=== PATIENT | male | born 1960 | race Caucasian/White ===

== ENCOUNTER 2018-03-13 21:54 | Inpatient (IN) | payer OTHER ==
--- NOTE | 2018-03-13 22:11 | PDOC ---
ED Treatment Course - LABORATORY CBC & Chemistry Diagram: 03/15/18 19:00 03/15/18 09:51 Medical Decision Making - Medical Decision Making 03/13/18 22:47 57 yo M presenting for evaluation of rectal bleeding Pt did well s/p procedure Has large Bowel Movement today and since then, has had rectal bleeding Daughter estimates 6 times Pt has no abdominal pain Went to the bathroom accompanied by Pt had a large bloody bowel movement and had a vasovagal episode Assisted to bed Labs pending Call to Dr Reji Jean-Baptiste pending 03/13/18 22:48 Laboratory Tests 03/13/18 03/13/18 22:00 22:00 WBC 5.5 Hgb 10.8 L Hct 31.2 L Plt Count 120 L BUN 19 H Creatinine 0.9 No baseline Hgb available for comparison Pt BUN elevated 03/13/18 23:11 Laboratory Tests 03/13/18 22:00 Urine Blood 3+ H Urine Nitrite Negative Ur Leukocyte Esterase Negative Urine WBC (Auto) 4 Urine RBC (Auto) 7592 Admitted to hospitalist service *DC/Admit/Observation/Transfer Diagnosis at time of Disposition: Vasovagal episode, Hematuria Post-operative hemorrhage Qualifiers: Surgical complication system/body Area: genitourinary Procedure type: genitourinary Qualified Code(s): N99.820 - Postprocedural hemorrhage of a genitourinary system organ or structure following a genitourinary system procedure - Discharge Dispostion Condition at time of disposition: Guarded - Referrals - Patient Instructions - Post Discharge Activity
[2018-03-13 22:23] LABS: BASO % 0.5 % (0-2.0); HEMATOCRIT 31.2 % (35.4-49); HEMOGLOBIN 10.8 GM/dL (11.7-16.9); LYMPH % 32.1 % (8-40); MCH 31.7 pg (25.7-33.7); MCHC 34.6 g/dl (32.0-35.9); MEAN CELL VOLUME 91.6 fl (80-96); MEAN PLT VOLUME 10.5 fl (7.5-11.1); MONO % 8.1 % (3.8-10.2); NEUT % 57.3 % (42.8-82.8); PLATELET COUNT 120 K/MM3 (134-434); RBC 3.41 M/mm3 (4.00-5.60); RDW 14.4 % (11.9-15.9); WHITE BLOOD COUNT 5.5 K/mm3 (4.0-10.0)
[2018-03-13] MEDS ORDERED: SODIUM CHLORIDE 1,000 ML IV STA (22:35)
--- NOTE | 2018-03-13 22:42 | PDOC ---
History of Present Illness - General Chief Complaint: Rectal Bleed Stated Complaint: BLEEDING POST PROCEDURE Time Seen by Provider: 03/13/18 22:11 History Source: Patient Exam Limitations: No Limitations - History of Present Illness Initial Comments: 03/13/18 22:54 Best Contact: PCP:Dr. Urbina/urologist, PMD: Dr. Isabella Mendez/admits to hospitalist Pmhx:HTN Pshx: 0 Allergies: NKDA FH:0 Social Hx: Cigarettes/ 0 Alcohol/ social Drugs/0 57-year-old male presents to the emergency department complaining of bright red blood per rectum and hematuria since approximately 0900 hrs. this morning. Patient states he had a prostate biopsy by Dr. Urbina 3 days ago. Patient states on the same day of his biopsy, he had a tinge bright red blood per rectum when wiping after a bowel movement which subsided after one episode. Patient states he was fine 2 days ago and yesterday until this morning. Patient endorses having the urge to have a bowel movement but instead noticed a copious amount of bright red blood. Patient denies any nausea/vomiting, fever/chills, headache, cp, sob, abd pain, flank pain, urinary symptoms/urgency/frequency, extremity numbness or tingling sensation. Had a good BM today with the BRBPR. Pt took naprosyn 500mg tid today. Upon arrival to the actual emergency department exam room, patient insists on going to the bathroom as opposed to using a bedpan. Patient vasovagal in the bathroom but was caught by his and did not fall and make contact with the floor. Past History - Past Medical History Allergies/Adverse Reactions: Allergies Allergy/AdvReac Type Severity Reaction Status Date / Time No Known Allergies Allergy Verified 03/13/18 22:19 Home Medications: Ambulatory Orders Lisinopril [Prinivil] 10 mg PO DAILY 09/20/14 Levofloxacin [Levaquin] 500 mg PO DAILY 03/13/18 Naproxen 500 mg PO DAILY 03/13/18 COPD: No HTN: Yes - Suicide/Smoking/Psychosocial Hx Smoking History: Never smoked Have you smoked in the past 12 months: No Information on smoking cessation initiated: No Hx Alcohol Use: No Drug/Substance Use Hx: No Substance Use Type: Alcohol Review of Systems - Review of Systems Able to Perform ROS?: Yes Comments:: 03/13/18 22:52 CONSTITUTIONAL: Absent: fever, chills, diaphoresis, generalized weakness, malaise, loss of appetite HEENT: Absent: rhinorrhea, nasal congestion, throat pain, throat swelling, difficulty swallowing, mouth swelling, ear pain, eye pain, visual Changes CARDIOVASCULAR: Absent: chest pain, loss of consciousness, palpitations, irregular heart rate, peripheral edema RESPIRATORY: Absent: cough, shortness of breath, dyspnea with exertion, orthopnea, wheezing, stridor, hemoptysis GASTROINTESTINAL: +BRBPR Absent: abdominal pain, abdominal distension, nausea, vomiting, diarrhea, constipation, melena, hematochezia GENITOURINARY: Absent: dysuria, frequency, urgency, hesitancy, hematuria, flank pain, genital pain MUSCULOSKELETAL: Absent: myalgia, arthralgia, joint swelling SKIN: Absent: rash, itching, pallor HEMATOLOGIC/IMMUNOLOGIC: Absent: easy bleeding, easy bruising, lymphadenopathy, frequent infections ENDOCRINE: Absent: unexplained weight gain, unexplained weight loss, heat intolerance, cold intolerance NEUROLOGIC: +dizziness Absent: headache, focal weakness or paresthesias, unsteady gait, seizure, mental status changes, bladder or bowel incontinence PSYCHIATRIC: Absent: anxiety, depression, suicidal or homicidal ideation, hallucinations. Is the patient limited Turkish proficient: No *Physical Exam - Vital Signs Last Vital Signs Temp Pulse Resp BP Pulse Ox 97.5 F L 120 H 16 133/93 100 03/13/18 22:16 03/13/18 22:16 03/13/18 22:16 03/13/18 22:16 03/13/18 22:16 - Physical Exam Comments: 03/13/18 22:53 GENERAL: Well developed, well nourished. Awake and alert. No acute distress. HEENT: Normocephalic, atraumatic. PERRLA, EOMI. No conjunctival pallor. Sclera are non- icteric. Moist mucous membranes. Oropharynx is clear. NECK: Supple. Full ROM. No JVD. Carotid pulses 2+ and symmetric, without bruits. No thyromegaly. No lymphadenopathy. CARDIOVASCULAR: Regular rate and rhythm. No murmurs, rubs, or gallops. Distal pulses are 2+ and symmetric. PULMONARY: No evidence of respiratory distress. Lungs clear to auscultation bilaterally. No wheezing, rales or rhonchi. ABDOMINAL: Soft. Non-tender. Non-distended. No rebound or guarding. No organomegaly. Normoactive bowel sounds. MUSCULOSKELETAL Normal range of motion at all joints. No bony deformities or tenderness. No CVA tenderness. EXTREMITIES: No cyanosis. No clubbing. No edema. No calf tenderness. SKIN: Warm and dry. Normal capillary refill. No rashes. No jaundice. NEUROLOGICAL: Alert, awake, appropriate. Cranial nerves 2-12 intact. No deficits to light touch and temperature in face, upper extremities and lower extremities. No motor deficits in the in face, upper extremities and lower extremities. Normoreflexic in the upper and lower extremities. Normal speech. Toes are down- going bilaterally. Gait is normal without ataxia. PSYCHIATRIC: Cooperative. Good eye contact. Appropriate mood and affect. Moderate Sedation - Procedure Monitoring Vital Signs: Procedure Monitoring Vital Signs Temperature 97.5 F L 03/13/18 22:16 Pulse Rate 120 H 03/13/18 22:16 Respiratory Rate 16 03/13/18 22:16 Blood Pressure 133/93 03/13/18 22:16 O2 Sat by Pulse Oximetry (%) 100 03/13/18 22:16 ED Treatment Course - LABORATORY CBC & Chemistry Diagram: 03/13/18 22:00 03/13/18 22:00 - ADDITIONAL ORDERS Additional order review: 03/13/18 22:00 RBC 3.41 L MCV 91.6 MCHC 34.6 RDW 14.4 MPV 10.5 Neutrophils % 57.3 Lymphocytes % 32.1 Monocytes % 8.1 Eosinophils % 2.0 Basophils % 0.5 *DC/Admit/Observation/Transfer Diagnosis at time of Disposition: Vasovagal episode Post-operative hemorrhage Qualifiers: Surgical complication system/body Area: genitourinary Procedure type: genitourinary Qualified Code(s): N99.820 - Postprocedural hemorrhage of a genitourinary system organ or structure following a genitourinary system procedure Hematuria Qualifiers: Hematuria type: unspecified type Qualified Code(s): R31.9 - Hematuria, unspecified - Discharge Dispostion Condition at time of disposition: Guarded Decision to Admit order: Yes - Referrals - Patient Instructions - Post Discharge Activity Progress Note - Progress Note Progress Note: 2251hrs: Called Dr. Urbina/pt's urologist [phone] 2304hrs: Spoke to Dr. Urbina/ req admit to hospitalist and have GI consult/ Levaquin 500mg qd/hydration 2306 hrs: Called Dr. 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 Will consult in the AM 2320hrs: Admitted to Dr. Eden/hospitalist
[2018-03-13 22:47] LABS: ALBUMIN 3.7 g/dl (3.4-5.0); ALK PHOS 81 U/L (45-117); ANION GAP 7 MMOL/L (8-16); BILIRUBIN,TOTAL 0.4 mg/dL (0.2-1); BLOOD UREA NITROGEN 19 mg/dL (7-18); CALCIUM 8.2 mg/dL (8.5-10.1); CHLORIDE 105 mmol/L (98-107); CO2 29 mmol/L (21-32); CREATININE 0.9 mg/dL (0.55-1.3); GLUCOSE,RANDOM 126 mg/dL (74-106); POTASSIUM 4.2 mmol/L (3.5-5.1); SGOT/AST 16 U/L (15-37); SGPT/ALT 25 U/L (13-61); SODIUM 140 mmol/L (136-145); TOT PROT 6.8 g/dl (6.4-8.2)
[2018-03-13 23:01] LABS: URINE APPEARANCE CLOUDY; URINE BILIRUBIN NEGATIVE (<2.0 mg/dL); URINE COLOR RED; URINE GLUCOSE (UA) 1+ (NEGATIVE); URINE KETONE NEGATIVE (NEGATIVE); URINE LEUK ESTERASE NEGATIVE (NEGATIVE); URINE NITRITE NEGATIVE (NEGATIVE); URINE PROTEIN 2+ (NEGATIVE); URINE UROBILINOGEN NEGATIVE mg/dL (0.2-1.0)
[2018-03-13 23:07] LABS: URINE BACTERIA FEW /hpf (NONE SEEN)
--- NOTE | 2018-03-13 23:33 | HP ---
CHIEF COMPLAINT: rectal bleeding PCP: Dr. 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 Patient said the bleeding started out very dark then became bright after the 2nd BM this am. He says he had prostate biopsy [address] Amada Jean-Baptiste after his PCP found an abnormal lab value (PSA?). He said he felt pain throughout the duration of the prostate biopsy. When he went home after the biopsy, he had 1 or 2 BMs with tinge bright red blood but has not had anymore since this AM. He also complains of dizziness. Patient was given Naproxen for pain and said he took 3 tablets in the last 24 hours. In the ED patient has a vasovagal episode while having a BM. Patient currently denies abdominal pain, n/ v, sob, chills, fevers, urinary changes, hemoptysis. ER course was notable for: (1) Copious BRBPR in ED (2) 10.4 Hgb (unknown baseline) (3) Tachycardic Recent Travel: denies PAST MEDICAL HISTORY: HTN PAST SURGICAL HISTORY: denies Social History: Smoking: denies Alcohol: occasionally Drugs: denies Family History: Allergies No Known Allergies Allergy (Verified 03/13/18 22:19) HOME MEDICATIONS: Home Medications Medication Instructions Recorded Lisinopril [Prinivil] 10 mg PO DAILY 09/20/14 Levofloxacin [Levaquin] 500 mg PO DAILY 03/13/18 Naproxen 500 mg PO DAILY 03/13/18 REVIEW OF SYSTEMS CONSTITUTIONAL: Absent: fever, chills, diaphoresis, generalized weakness, malaise, loss of appetite, weight change HEENT: Absent: rhinorrhea, nasal congestion, throat pain, throat swelling, difficulty swallowing, mouth swelling, ear pain, eye pain, visual changes CARDIOVASCULAR: lightheadedness Absent: chest pain, syncope, palpitations, irregular heart rate, peripheral edema RESPIRATORY: Absent: cough, shortness of breath, dyspnea with exertion, orthopnea, wheezing, stridor, hemoptysis GASTROINTESTINAL: Absent: abdominal pain, abdominal distension, nausea, vomiting, diarrhea, constipation, melena GENITOURINARY: hematuria Absent: dysuria, frequency, urgency, hesitancy, flank pain, genital pain MUSCULOSKELETAL: Absent: myalgia, arthralgia, joint swelling, back pain, neck pain SKIN: Absent: rash, itching, pallor HEMATOLOGIC/IMMUNOLOGIC: Absent: easy bleeding, easy bruising, lymphadenopathy, frequent infections ENDOCRINE: Absent: unexplained weight gain, unexplained weight loss, heat intolerance, cold intolerance NEUROLOGIC: Absent: headache, focal weakness or paresthesias, dizziness, unsteady gait, seizure, mental status changes, bladder or bowel incontinence PSYCHIATRIC: Absent: anxiety, depression, suicidal or homicidal ideation, hallucinations. PHYSICAL EXAMINATION Vital Signs - 24 hr 03/13/18 22:16 Temperature 97.5 F L Pulse Rate 120 H Respiratory 16 Rate Blood Pressure 133/93 O2 Sat by Pulse 100 Oximetry (%) GENERAL: patient appears pale, A/o x 3, NAD HEAD: Normal with no signs of trauma. EYES: Pupils equal, round and reactive to light, extraocular movements intact, pale conjunctiva EARS, NOSE, THROAT: oropharynx clear without exudates. Moist mucous membranes. NECK: Normal range of motion, supple without lymphadenopathy, JVD, or masses. LUNGS: Breath sounds equal, clear to auscultation bilaterally. No wheezes, and no crackles. HEART: Regular rate and rhythm, normal S1 and S2 without murmur, rub or gallop. ABDOMEN: Soft, nontender, not distended, normoactive bowel sounds, no guarding, no rebound, no masses.a. LOWER EXTREMITIES: 2+ pulses, warm, well-perfused. No calf tenderness. No peripheral edema. NEUROLOGICAL: Cranial nerves II-XII intact. Normal speech. RECTAL: Blood in rectal vault, no hemorrhoids, gross Bright red blood Laboratory Results - last 24 hr 03/13/18 03/13/18 03/13/18 22:00 22:00 22:00 WBC 5.5 RBC 3.41 L Hgb 10.8 L Hct 31.2 L MCV 91.6 MCH 31.7 MCHC 34.6 RDW 14.4 Plt Count 120 L MPV 10.5 Absolute Neuts (auto) 3.2 Neutrophils % 57.3 Lymphocytes % 32.1 Monocytes % 8.1 Eosinophils % 2.0 Basophils % 0.5 Nucleated RBC % 0 Sodium 140 Potassium 4.2 Chloride 105 Carbon Dioxide 29 Anion Gap 7 L BUN 19 H Creatinine 0.9 Creat Clearance w eGFR > 60 Random Glucose 126 H Calcium 8.2 L Total Bilirubin 0.4 AST 16 ALT 25 Alkaline Phosphatase 81 Total Protein 6.8 Albumin 3.7 Urine Color Red Urine Appearance Cloudy Urine pH 5.0 Ur Specific [place] 1.026 Urine Protein 2+ H Urine Glucose (UA) 1+ H Urine Ketones Negative Urine Blood 3+ H Urine Nitrite Negative Urine Bilirubin Negative Urine Urobilinogen Negative Ur Leukocyte Esterase Negative Urine WBC (Auto) 4 Urine RBC (Auto) 7592 Urine Bacteria Few ASSESSMENT/PLAN: 57 yo M with a PMHx of HTN, presented to the ED because of 4-6 episodes of BRBPR this morning and hematuria. #Hematochezia/Hematuria -likely complication from Prostate biopsy vs ?GI bleed -Hematuria and BRBPR in ED -3+ blood in U/A -Urology consulted: Dr. Urbina. Cont. Levaquin per Uro -GI consulted -Hold Naproxen -Protonix drip -IV fluids #Acute blood loss anemia - vs GI bleed -BRBPR in ER -Hgb 10.8. unknown baseline -pale on PE -Monitor Hgb -FOBT + -FU repeat CBC now and in AM -keep Hgb >7 -IV fluids -protonix drip #HTN -resume meds #FEN -NS @ 100 -monitor -NPO #Ppx -SCDs Med-surge Visit type - Emergency Visit Emergency Visit: Yes ED Registration Date: 03/13/18 Care time: The patient presented to the Emergency Department on the above date and was hospitalized for further evaluation of their emergent condition. - New Patient This patient is new to me today: Yes Date on this admission: 03/14/18 - Critical Care Critical Care patient: No
[2018-03-13] MEDS ORDERED: PANTOPRAZOLE SODIUM 40 MG VIAL IVPUSH ONE (23:38)
[2018-03-13] MEDS ORDERED: PANTOPRAZOLE SODIUM 80 MG in SODIUM CHLORIDE 100 ML IVPB SCH (23:45)
[2018-03-14] MEDS ORDERED: PANTOPRAZOLE SODIUM 40 MG VIAL ONE
[2018-03-14] MEDS ORDERED: PANTOPRAZOLE SODIUM 160 MG in DEXTROSE 5%-WATER - 290 ML IVPB SCH (00:15)
[2018-03-14 00:46] LABS: BASO % 0.4 % (0-2.0); EOS % 0.3 % (0-4.5); HEMATOCRIT 24.4 % (35.4-49); HEMOGLOBIN 8.3 GM/dL (11.7-16.9); LYMPH % 6.5 % (8-40); MCH 31.4 pg (25.7-33.7); MCHC 34.3 g/dl (32.0-35.9); MEAN CELL VOLUME 91.7 fl (80-96); MEAN PLT VOLUME 10.7 fl (7.5-11.1); MONO % 3.8 % (3.8-10.2); PLATELET COUNT 105 K/MM3 (134-434); RBC 2.66 M/mm3 (4.00-5.60); RDW 14.5 % (11.9-15.9); WHITE BLOOD COUNT 13.5 K/mm3 (4.0-10.0)
[2018-03-14] MEDS: SODIUM CHLORIDE 1,000 ML IV SCH ×3 (01:05→04:42)
[2018-03-14 01:15] LABS: INR 1.08 (0.83-1.09); PROTHROMBIN TIME (PATIENT) 12.8 SEC (9.7-13.0)
[2018-03-14] MEDS ORDERED: SODIUM CHLORIDE 1,000 ML IV STA (02:56)
[2018-03-14 05:07] VITALS: BMI 29.0
--- NOTE | 2018-03-14 06:48 | PN ---
Teaching Attending Note Name of Resident: Sachin Mckeon ATTENDING PHYSICIAN STATEMENT I saw and evaluated the patient. I reviewed the resident's note and discussed the case with the resident. I agree with the resident's findings and plan as documented. SUBJECTIVE: OBJECTIVE: AAOX3 pale S1 and S2 RRR Lungs CTA suprapubic abdominal pain ASSESSMENT AND PLAN: this is a 57 yo M with a PMHx of HTN, and BPH presented to the ED because of 4- 6 episodes of BRBPR this morning and hematuria after the patient had a biopsy done for him recently. the patient noticed a lot of blood coming out from him urine and decided to come to the hospital as acute blood loss 2/2 hematuria vs acute GI blood loss - Hb was 10.8 dropped to 8.8 -3+ blood in U/A - Urology consulted: Dr. Urbina. Cont. Levofloxacin per recommendation - f/u GI evaluation - d/c Naproxen - follow with the Hb q6hrs if stable then 12 hrs, then q24hrs - suspicion GI bleed start pantaprazole 40mg twice -IV fluids -Hgb 10.8. unknown baseline #HTN -hold meds
[2018-03-14 09:57] LABS: BASO % 0.2 % (0-2.0); EOS % 0.7 % (0-4.5); HEMATOCRIT 21.9 % (35.4-49); HEMOGLOBIN 7.5 GM/dL (11.7-16.9); LYMPH % 18.4 % (8-40); MCH 31.2 pg (25.7-33.7); MCHC 34.4 g/dl (32.0-35.9); MEAN CELL VOLUME 90.9 fl (80-96); MEAN PLT VOLUME 10.2 fl (7.5-11.1); MONO % 5.2 % (3.8-10.2); NEUT % 75.5 % (42.8-82.8); PLATELET COUNT 87 K/MM3 (134-434); RBC 2.41 M/mm3 (4.00-5.60); RDW 14.4 % (11.9-15.9)
[2018-03-14] MEDS ORDERED: LISINOPRIL 10 MG TABLET (FP) PO SCH (10:00)
[2018-03-14 10:18] LABS: INR 1.14 (0.83-1.09); PROTHROMBIN TIME (PATIENT) 13.5 SEC (9.7-13.0)
[2018-03-14 10:40] LABS: ALBUMIN 2.5 g/dl (3.4-5.0); ALK PHOS 50 U/L (45-117); ANION GAP 8 MMOL/L (8-16); BILIRUBIN,TOTAL 0.5 mg/dL (0.2-1); BLOOD UREA NITROGEN 17 mg/dL (7-18); CHLORIDE 116 mmol/L (98-107); CO2 25 mmol/L (21-32); CREATININE 0.7 mg/dL (0.55-1.3); GLUCOSE,RANDOM 109 mg/dL (74-106); POTASSIUM 4.5 mmol/L (3.5-5.1); SGOT/AST 10 U/L (15-37); SGPT/ALT 17 U/L (13-61); SODIUM 148 mmol/L (136-145); TOT PROT 4.7 g/dl (6.4-8.2)
[2018-03-14 11:19] LABS: CALCIUM 6.8 mg/dL (8.5-10.1)
--- NOTE | 2018-03-14 15:23 | PN ---
Progress Note (short form) - Note Progress Note: SUBJECTIVE: Still has BRBPR, no further hematuria. No abdominal discomfort. No nausea/vomiting. OBJECTIVE: Afebrile, Hemodynamically Stable. Last Vital Signs Temp Pulse Resp BP Pulse Ox 98.4 F 94 H 20 118/75 98 03/14/18 09:54 03/14/18 09:54 03/14/18 09:54 03/14/18 09:54 03/14/18 05:01 HEENT - Atraumatic, Normocephalic. Heart - S1, S2, RRR Lungs - clear to auscultation. Abdomen - soft, non-tender. Bowel Sounds normal. Extremities - no edema. No calf tenderness. Laboratory Results - last 24 hr 03/13/18 03/13/18 03/13/18 22:00 22:00 22:00 WBC 5.5 RBC 3.41 L Hgb 10.8 L Hct 31.2 L MCV 91.6 MCH 31.7 MCHC 34.6 RDW 14.4 Plt Count 120 L MPV 10.5 Absolute Neuts (auto) 3.2 Neutrophils % 57.3 Lymphocytes % 32.1 Monocytes % 8.1 Eosinophils % 2.0 Basophils % 0.5 Nucleated RBC % 0 PT with INR 12.80 INR 1.08 Sodium Potassium Chloride Carbon Dioxide Anion Gap BUN Creatinine Creat Clearance w eGFR POC Glucometer Random Glucose Calcium Total Bilirubin AST ALT Alkaline Phosphatase Creatine Kinase Troponin I Total Protein Albumin Urine Color Red Urine Appearance Cloudy Urine pH 5.0 Ur Specific [place] 1.026 Urine Protein 2+ H Urine Glucose (UA) 1+ H Urine Ketones Negative Urine Blood 3+ H Urine Nitrite Negative Urine Bilirubin Negative Urine Urobilinogen Negative Ur Leukocyte Esterase Negative Urine WBC (Auto) 4 Urine RBC (Auto) 7592 Urine Bacteria Few Stool Occult Blood Blood Type Antibody Screen Crossmatch 03/13/18 03/13/18 03/13/18 22:00 22:00 22:00 WBC RBC Hgb Hct MCV MCH MCHC RDW Plt Count MPV Absolute Neuts (auto) Neutrophils % Lymphocytes % Monocytes % Eosinophils % Basophils % Nucleated RBC % PT with INR INR Sodium 140 Potassium 4.2 Chloride 105 Carbon Dioxide 29 Anion Gap 7 L BUN 19 H Creatinine 0.9 Creat Clearance w eGFR > 60 POC Glucometer Random Glucose 126 H Calcium 8.2 L Total Bilirubin 0.4 AST 16 ALT 25 Alkaline Phosphatase 81 Creatine Kinase 92 Troponin I < 0.02 Total Protein 6.8 Albumin 3.7 Urine Color Urine Appearance Urine pH Ur Specific [place] Urine Protein Urine Glucose (UA) Urine Ketones Urine Blood Urine Nitrite Urine Bilirubin Urine Urobilinogen Ur Leukocyte Esterase Urine WBC (Auto) Urine RBC (Auto) Urine Bacteria Stool Occult Blood Blood Type O POSITIVE Antibody Screen Negative Crossmatch See Detail 03/14/18 03/14/18 03/14/18 00:10 00:33 00:33 WBC 13.5 H RBC 2.66 L Hgb 8.3 L Hct 24.4 L D MCV 91.7 MCH 31.4 MCHC 34.3 RDW 14.5 Plt Count 105 L MPV 10.7 Absolute Neuts (auto) 12.0 H Neutrophils % 89.0 H D Lymphocytes % 6.5 L D Monocytes % 3.8 Eosinophils % 0.3 D Basophils % 0.4 Nucleated RBC % 0 PT with INR INR Sodium Potassium Chloride Carbon Dioxide Anion Gap BUN Creatinine Creat Clearance w eGFR POC Glucometer Random Glucose Calcium Total Bilirubin AST ALT Alkaline Phosphatase Creatine Kinase Troponin I Total Protein Albumin Urine Color Urine Appearance Urine pH Ur Specific [place] Urine Protein Urine Glucose (UA) Urine Ketones Urine Blood Urine Nitrite Urine Bilirubin Urine Urobilinogen Ur Leukocyte Esterase Urine WBC (Auto) Urine RBC (Auto) Urine Bacteria Stool Occult Blood Positive Blood Type O POSITIVE Antibody Screen Crossmatch 03/14/18 03/14/18 03/14/18 02:46 09:30 09:30 WBC RBC Hgb Hct MCV MCH MCHC RDW Plt Count MPV Absolute Neuts (auto) Neutrophils % Lymphocytes % Monocytes % Eosinophils % Basophils % Nucleated RBC % PT with INR 13.50 H INR 1.14 H Sodium 148 H Potassium 4.5 Chloride 116 H Carbon Dioxide 25 Anion Gap 8 BUN 17 Creatinine 0.7 Creat Clearance w eGFR > 60 POC Glucometer 154 Random Glucose 109 H Calcium 6.8 L* Total Bilirubin 0.5 AST 10 L ALT 17 Alkaline Phosphatase 50 Creatine Kinase Troponin I Total Protein 4.7 L Albumin 2.5 L Urine Color Urine Appearance Urine pH Ur Specific [place] Urine Protein Urine Glucose (UA) Urine Ketones Urine Blood Urine Nitrite Urine Bilirubin Urine Urobilinogen Ur Leukocyte Esterase Urine WBC (Auto) Urine RBC (Auto) Urine Bacteria Stool Occult Blood Blood Type Antibody Screen Crossmatch 03/14/18 09:30 WBC 6.0 RBC 2.41 L Hgb 7.5 L Hct 21.9 L MCV 90.9 MCH 31.2 MCHC 34.4 RDW 14.4 Plt Count 87 L MPV 10.2 Absolute Neuts (auto) 4.5 Neutrophils % 75.5 Lymphocytes % 18.4 D Monocytes % 5.2 Eosinophils % 0.7 D Basophils % 0.2 Nucleated RBC % 0 PT with INR INR Sodium Potassium Chloride Carbon Dioxide Anion Gap BUN Creatinine Creat Clearance w eGFR POC Glucometer Random Glucose Calcium Total Bilirubin AST ALT Alkaline Phosphatase Creatine Kinase Troponin I Total Protein Albumin Urine Color Urine Appearance Urine pH Ur Specific [place] Urine Protein Urine Glucose (UA) Urine Ketones Urine Blood Urine Nitrite Urine Bilirubin Urine Urobilinogen Ur Leukocyte Esterase Urine WBC (Auto) Urine RBC (Auto) Urine Bacteria Stool Occult Blood Blood Type Antibody Screen Crossmatch Current Medications Generic Name Dose Route Start Last Admin Trade Name Freq PRN Reason Stop Dose Admin Pantoprazole Sodium 160 mg/ 290 mls @ 14.5 mls/hr 03/14/18 00:15 03/14/18 01: 21 Dextrose IVPB 14.5 mls/hr Q20H SHALONDA Administration Sodium Chloride 1,000 mls @ 125 mls/hr 03/14/18 04:29 03/14/18 04:42 Normal Saline - IV 125 mls/hr ASDIR SHALONDA Administration Levofloxacin 500 mg 03/14/18 06:00 03/14/18 06:45 Levaquin - PO 500 mg DAILY@0600 SHALONDA Administration Home Medications Medication Instructions Recorded Lisinopril [Prinivil] 10 mg PO DAILY 09/20/14 Levofloxacin [Levaquin] 500 mg PO DAILY 03/13/18 Naproxen 500 mg PO DAILY 03/13/18 ASSESSMENT/PLAN 57 year old male with HTN, presented with multiple episodes of BRBPR and Hematuria s/p Prostate Biopsy 4/7 days ago by Urology (Dr. Urbina). 1. Acute Blood Loss Anemia sec to Rectal Bleed and Hematuria s/p Prostate Biopsy H/H 7.5/21.9 LIkely complication from biopsy Urology and GI consulted. Empirically on Levaquin. 2. HTN - Continue Lisinopril. 3. Hypoalbuminemia - corrected Calcium 8.0 (albumin 2.5) DVT Px - SCDs - Heparin held sec to DVT.
--- NOTE | 2018-03-14 15:26 | CONS ---
DATE OF CONSULTATION: 03/14/2018 GASTROINTESTINAL CONSULTATION HISTORY OF PRESENT ILLNESS: The patient is a 57-year-old man with a past medical history of hypertension who had a prostate biopsy done 4 days ago and presents to the hospital with hematuria and some episodes of bright red blood per rectum. He admits to taking 3 tablets of Naprosyn shortly before his symptoms began. He was dizzy upon admission and apparently had a vasovagal episode. This morning he is feeling much better. He denies any abdominal pain, nausea, vomiting, and melena and apparently has had another bowel movement which revealed brown stool with some scant amounts of blood. His last upper colonoscopy was done a year ago which he reports to be negative. He has no history of GI bleed in the past and has never had an upper endoscopy. PAST MEDICAL AND SURGICAL HISTORY: Hypertension and prostate biopsy. SOCIAL HISTORY: He does not smoke. He drinks socially. Drugs: Denies. FAMILY HISTORY: No history of GI or gynecological malignancies. REVIEW OF SYSTEMS: Negative except for pertinent positives in the HPI. HOME MEDICATIONS: Include lisinopril, Levofloxacin, and Naprosyn. PHYSICAL EXAMINATION: Vital Signs: Temperature 98, pulse 94, blood pressure 118/75, respiratory rate 12, saturation 98% on room air. General: No acute distress. HEENT: Anicteric sclerae. Cardiovascular: S1, S2. Regular rate and rhythm. Lungs: Bilaterally clear to auscultation. Abdomen: Soft, nontender. Extremities: No edema. LABORATORY DATA: White blood cell count on admission 13.5, hemoglobin 8.3/24, MCV 91, platelet count 105. INR 1.1. Chemistries reveal a sodium of 148, potassium 4.5, BUN/creatinine 17/0.7, glucose 109, calcium 6.8, previously was 8.2. AST 10, ALT 17, alkaline phosphatase 50. Urine is positive for blood and stool is positive for blood. There is no microbiology listed. He has not had any imaging of his abdomen. Chest x-ray was performed and revealed no acute chest pathology. IMPRESSION: Hematuria and an episode of rectal bleeding, status post prostate biopsy and Naprosyn use. Current symptoms are secondary to Naprosyn use in the setting of a recent prostate biopsy. I spoke with his urologist who agreed with supportive care for now and no invasive procedures. RECOMMENDATIONS: Continue antibiotics as per Urology, trend hemoglobin and hematocrit 212 while hospitalized. Put him on a clear liquid diet. Avoid NSAIDs, may use Tylenol for pain. We will hold off on any invasive procedures at this time unless he develops signs of an overt GI bleed. DO MASSIEL PAULA/[id number]
--- NOTE | 2018-03-14 19:05 | EKG ---
Test Reason : Blood Pressure : / mmHG Vent. Rate : 092 BPM Atrial Rate : 092 BPM P-R Int : 148 ms QRS Dur : 084 ms QT Int : 368 ms P-R-T Axes : 048 061 003 degrees QTc Int : 455 ms NORMAL SINUS RHYTHM NORMAL ECG NO PREVIOUS ECGS AVAILABLE Confirmed by BILL MAR MD ([id number]) on 03/14/2018 7:05:04 PM Referred By: Confirmed By:BILL MAR MD
[2018-03-14 21:28] LABS: HEMATOCRIT 21.6 % (35.4-49); HEMOGLOBIN 7.6 GM/dL (11.7-16.9); MCH 31.6 pg (25.7-33.7); MCHC 35.1 g/dl (32.0-35.9); MEAN CELL VOLUME 90.1 fl (80-96); MEAN PLT VOLUME 9.6 fl (7.5-11.1); PLATELET COUNT 84 K/MM3 (134-434); RBC 2.39 M/mm3 (4.00-5.60); RDW 14.6 % (11.9-15.9); WHITE BLOOD COUNT 4.6 K/mm3 (4.0-10.0)
[2018-03-14] MEDS: PANTOPRAZOLE SODIUM 40 MG VIAL IVPUSH SCH (21:38)
[2018-03-15] MEDS: SODIUM CHLORIDE 1,000 ML IV SCH (05:49)
--- NOTE | 2018-03-15 07:44 | PN ---
Progress Note, Physician Chief Complaint: no new complaints ; denies any further episode of hematochezia. Denies abdominal pain / nausea/ vomiting; states he is feeling well - Current Medication List Current Medications: Active Medications Sodium Chloride (Normal Saline -) 1,000 mls @ 125 mls/hr IV ASDIR [facility] Last Admin: 03/15/18 05:49 Dose: 125 mls/hr Levofloxacin (Levaquin -) 500 mg PO DAILY@0600 [facility] Last Admin: 03/15/18 05:49 Dose: 500 mg Pantoprazole Sodium (Protonix Iv) 40 mg IVPUSH BID [facility] Last Admin: 03/14/18 21:38 Dose: 40 mg - Objective Vital Signs: Vital Signs Temperature 97.7 F 03/15/18 06:00 Pulse Rate 99 H 03/15/18 06:00 Respiratory Rate 03/15/18 06:00 Blood Pressure 128/78 03/15/18 06:00 O2 Sat by Pulse Oximetry (%) 98 03/14/18 21:00 Constitutional: Yes: Well Nourished Eyes: Yes: WNL HENT: Yes: WNL Neck: Yes: WNL Cardiovascular: Yes: WNL, Regular Rate and Rhythm Respiratory: Yes: WNL, Regular, CTA Bilaterally Gastrointestinal: Yes: WNL, Normal Bowel Sounds, Soft Musculoskeletal: Yes: WNL Extremities: Yes: WNL Peripheral Pulses WNL: No Labs: CBC, BMP 03/14/18 21:00 03/14/18 09:30 INR, PTT INR 1.14 (0.83-1.09) H 03/14/18 09:30 Problem List - Problems (1) Hematuria Assessment/Plan: - advanced to sodium controlled diet - monitor h/h qd while hospitalized - urology f/u - no further sign of GI bleed Code(s): R31.9 - HEMATURIA, UNSPECIFIED Qualifiers: Hematuria type: unspecified type Qualified Code(s): R31.9 - Hematuria, unspecified (2) Post-operative hemorrhage Code(s): [id number] - Qualifiers: Surgical complication system/body Area: genitourinary Procedure type: genitourinary Qualified Code(s): N99.820 - Postprocedural hemorrhage of a genitourinary system organ or structure following a genitourinary system procedure
--- NOTE | 2018-03-15 08:58 | PN ---
Physical Exam: SUBJECTIVE: Patient seen and examined at bedside this morning. He denies acute complaints. States his last bowel movement was yesterday afternoon, associated with sara blood. He denies any bowel movements, or sara blood today. He endorses discomfort with urination, however denies hematuria, or penile discharge. Denies fevers, chills, shortness of breath, chest pain, palpitations , abdominal pain, nausea, vomiting. OBJECTIVE: Vital Signs Period Temp Pulse Resp BP Sys/Cabrera Pulse Ox Last 24 Hr 97.7 F-98.8 F 94-100 20-20 118-138/70-88 98-99 GENERAL: The patient is awake, alert, and fully oriented, in no acute distress. HEAD: Normocephalic, atraumatic EYES: PERRL, extraocular movements intact, sclera anicteric, conjunctiva clear ENT: Oropharynx clear without exudates, moist mucous membranes. NECK: Supple, without lymphadenopathy LUNGS: Breath sounds equal, clear to auscultation bilaterally, no wheezes, no crackles. HEART: Regular rate and rhythm, S1, S2 without murmur, rub or gallop. ABDOMEN: Soft, nontender to light and deep palpation. Hypoactive bowel sounds X4 quadrants. No guarding, no rebound tenderness. No hepatosplenomegaly appreciated. EXTREMITIES: 2+ radial and dorsalis pedis pulses B/L. Warm, well-perfused. No lower extremity edema. NEUROLOGICAL: Cranial nerves II through XII grossly intact. Normal speech. PSYCH: Normal mood, normal affect upon my encounter today. SKIN: Warm, dry. Laboratory Results - last 24 hr 03/14/18 03/14/18 03/14/18 00:10 09:30 09:30 WBC RBC Hgb Hct MCV MCH MCHC RDW Plt Count MPV Absolute Neuts (auto) Neutrophils % Lymphocytes % Monocytes % Eosinophils % Basophils % Nucleated RBC % PT with INR 13.50 H INR 1.14 H Sodium 148 H Potassium 4.5 Chloride 116 H Carbon Dioxide 25 Anion Gap 8 BUN 17 Creatinine 0.7 Creat Clearance w eGFR > 60 Random Glucose 109 H Calcium 6.8 L* Total Bilirubin 0.5 AST 10 L ALT 17 Alkaline Phosphatase 50 Total Protein 4.7 L Albumin 2.5 L Stool Occult Blood Positive 03/14/18 03/14/18 09:30 21:00 WBC 6.0 4.6 RBC 2.41 L 2.39 L Hgb 7.5 L 7.6 L Hct 21.9 L 21.6 L MCV 90.9 90.1 MCH 31.2 31.6 MCHC 34.4 35.1 RDW 14.4 14.6 Plt Count 87 L 84 L MPV 10.2 9.6 Absolute Neuts (auto) 4.5 Neutrophils % 75.5 Lymphocytes % 18.4 D Monocytes % 5.2 Eosinophils % 0.7 D Basophils % 0.2 Nucleated RBC % 0 PT with INR INR Sodium Potassium Chloride Carbon Dioxide Anion Gap BUN Creatinine Creat Clearance w eGFR Random Glucose Calcium Total Bilirubin AST ALT Alkaline Phosphatase Total Protein Albumin Stool Occult Blood Active Medications Generic Name Dose Route Start Last Admin Trade Name Freq PRN Reason Stop Dose Admin Sodium Chloride 1,000 mls @ 125 mls/hr 03/14/18 04:29 03/15/18 05:49 Normal Saline - IV 125 mls/hr ASDIR SHALONDA Administration Levofloxacin 500 mg 03/14/18 06:00 03/15/18 05:49 Levaquin - PO 500 mg DAILY@0600 SHALONDA Administration Pantoprazole Sodium 40 mg 03/14/18 22:00 03/14/18 21:38 Protonix Iv IVPUSH 40 mg BID SHALODNA Administration ASSESSMENT/PLAN: Patient is a 57 year old male with history of hypertension, recent prostate biopsy presented with bright red blood per rectum and hematuria. Acute blood loss anemia- secondary to recent prostate biopsy -Patient is s/p 1 unit PRBC transfusion 03/14/2018. Will transfuse additional unit PRBC today. -Levaquin 500mg PO daily -GI consult (Dr. Duong) appreciated. Will continue supportive care. -Urology consult (Dr. Urbina) appreciated. Begin bowel regimen with Miralax, Senna- as bowel movement likely precipitating event of prior bleeding. -Follow Hb/ Hct Hypertension -Home Lisinopril held upon admission due to bleeding. -Patient is currently normotensive. Follow vital signs FEN -Patient is refusing 1 unit PRBC transfusion -Follow CMP -Sodium controlled diet Prophylaxis -SCDs B/L lower extremities Disposition -Continue care in medical surgical floor. Visit type - Emergency Visit Emergency Visit: Yes ED Registration Date: 03/13/18 Care time: The patient presented to the Emergency Department on the above date and was hospitalized for further evaluation of their emergent condition. - New Patient This patient is new to me today: Yes Date on this admission: 03/15/18 - Critical Care Critical Care patient: No - Discharge Referral Referred to [facility] Med P.C.: No
[2018-03-15] MEDS: PANTOPRAZOLE SODIUM 40 MG VIAL IVPUSH SCH (09:54)
[2018-03-15 10:48] LABS: BASO % 0.4 % (0-2.0); EOS % 2.5 % (0-4.5); HEMATOCRIT 20.7 % (35.4-49); HEMOGLOBIN 7.4 GM/dL (11.7-16.9); LYMPH % 24.6 % (8-40); MCH 32.3 pg (25.7-33.7); MCHC 35.5 g/dl (32.0-35.9); MEAN CELL VOLUME 90.8 fl (80-96); MEAN PLT VOLUME 10.3 fl (7.5-11.1); MONO % 6.6 % (3.8-10.2); NEUT % 65.9 % (42.8-82.8); PLATELET COUNT 84 K/MM3 (134-434); RBC 2.28 M/mm3 (4.00-5.60); RDW 14.5 % (11.9-15.9); WHITE BLOOD COUNT 3.7 K/mm3 (4.0-10.0)
[2018-03-15 11:28] LABS: ALBUMIN 2.8 g/dl (3.4-5.0); ALK PHOS 51 U/L (45-117); ANION GAP 5 MMOL/L (8-16); BILIRUBIN,TOTAL 0.3 mg/dL (0.2-1); BLOOD UREA NITROGEN 9 mg/dL (7-18); CALCIUM 7.2 mg/dL (8.5-10.1); CHLORIDE 108 mmol/L (98-107); CO2 29 mmol/L (21-32); CREATININE 0.8 mg/dL (0.55-1.3); GLUCOSE,RANDOM 95 mg/dL (74-106); SGOT/AST 16 U/L (15-37); SGPT/ALT 19 U/L (13-61); SODIUM 141 mmol/L (136-145); TOT PROT 5.3 g/dl (6.4-8.2)
--- NOTE | 2018-03-15 13:27 | CON.GU ---
Consult Consult Specialty:: urology Reason for Consultation:: hematachezia and hematuria s/p prostate biopsy - History of Present Illness Chief Complaint: hematochezia and hematuria s/p prostate biopsy History of Present Illness: Patient is s/p a transrectal prostate biopsy performed in the office setting on . The patient had a bulky bowel movement which precipitated passage of clots per rectum and gross hematuria. Patient denies fever, chills, nausea, vomiting, or loss of consciousness. Patient is s/p tranfusions of PRBC's. - History Source History Provided By: Patient Limitations to Obtaining History: No Limitations - Alcohol/Substance Use Hx Alcohol Use: No - Smoking History Smoking history: Never smoked Have you smoked in the past 12 months: No Home Medications - Allergies Allergies/Adverse Reactions: Allergies Allergy/AdvReac Type Severity Reaction Status Date / Time No Known Allergies Allergy Verified 03/13/18 22:19 - Home Medications Home Medications: Ambulatory Orders Lisinopril [Prinivil] 10 mg PO DAILY 09/20/14 Levofloxacin [Levaquin] 500 mg PO DAILY 03/13/18 Naproxen 500 mg PO DAILY 03/13/18 Physical Exam- Vital Signs: Vital Signs Temperature 97.7 F 03/15/18 06:00 Pulse Rate 109 H 03/15/18 10:26 Respiratory Rate 20 03/15/18 10:26 Blood Pressure 159/92 03/15/18 10:26 O2 Sat by Pulse Oximetry (%) 98 03/15/18 09:00 Constitutional: Yes: Well Nourished, No Distress, Calm Eyes: Yes: WNL, Conjunctiva Clear, EOM Intact HENT: Yes: WNL, Atraumatic, Normocephalic Neck: Yes: WNL, Supple, Trachea Midline Cardiovascular: Yes: WNL, Regular Rate and Rhythm Respiratory: Yes: WNL Gastrointestinal: Yes: WNL Renal/: Yes: WNL Kidneys: Yes: WNL Pelvis: Yes: WNL, Bladder Non Palpable Testicles: Yes: WNL Scrotum: Yes: WNL Penis: Yes: WNL Prostate Exam: Yes: Deferred Musculoskeletal: Yes: WNL Extremities: Yes: WNL Labs: CBC, BMP 03/15/18 09:51 03/15/18 09:51 Assessment/Plan imp hematachezia hematuria s/p prostate biopsy for elevated psa plan bowel regimen supportive care follow H+H
--- NOTE | 2018-03-15 13:46 | PN ---
Teaching Attending Note Name of Resident: David Jimenez ATTENDING PHYSICIAN STATEMENT I saw and evaluated the patient. I reviewed the resident's note and discussed the case with the resident. I agree with the resident's findings and plan as documented. SUBJECTIVE: No further hematuria; no bowel movements overnight, no further BRBPR overnight. No abdominal discomfort. No nausea/vomiting. OBJECTIVE: Afebrile, Hemodynamically Stable. Last Vital Signs Temp Pulse Resp BP Pulse Ox 97.7 F 109 H 20 159/92 98 03/15/18 06:00 03/15/18 10:26 03/15/18 10:26 03/15/18 10:03/15/18 09:00 HEENT - Atraumatic, Normocephalic. Heart - S1, S2, RRR Lungs - clear to auscultation. Abdomen - soft, non-tender. Bowel Sounds normal. Extremities - no edema. No calf tenderness. Laboratory Results - last 24 hr 03/13/18 03/14/18 03/15/18 22:00 21:00 09:51 WBC 4.6 3.7 L RBC 2.39 L 2.28 L Hgb 7.6 L 7.4 L Hct 21.6 L 20.7 L MCV 90.1 90.8 MCH 31.6 32.3 MCHC 35.1 35.5 RDW 14.6 14.5 Plt Count 84 L 84 L MPV 9.6 10.3 Absolute Neuts (auto) 2.4 Neutrophils % 65.9 Lymphocytes % 24.6 D Monocytes % 6.6 Eosinophils % 2.5 D Basophils % 0.4 Nucleated RBC % 0 Sodium Potassium Chloride Carbon Dioxide Anion Gap BUN Creatinine Creat Clearance w eGFR Random Glucose Calcium Total Bilirubin AST ALT Alkaline Phosphatase Total Protein Albumin Blood Type O POSITIVE Antibody Screen Negative Crossmatch See Detail 03/15/18 09:51 WBC RBC Hgb Hct MCV MCH MCHC RDW Plt Count MPV Absolute Neuts (auto) Neutrophils % Lymphocytes % Monocytes % Eosinophils % Basophils % Nucleated RBC % Sodium 141 Potassium 4.0 Chloride 108 H Carbon Dioxide 29 Anion Gap 5 L BUN 9 Creatinine 0.8 Creat Clearance w eGFR > 60 Random Glucose 95 Calcium 7.2 L Total Bilirubin 0.3 AST 16 ALT 19 Alkaline Phosphatase 51 Total Protein 5.3 L Albumin 2.8 L Blood Type Antibody Screen Crossmatch Current Medications Generic Name Dose Route Start Last Admin Trade Name Freq PRN Reason Stop Dose Admin Sodium Chloride 1,000 mls @ 125 mls/hr 03/14/18 04:29 03/15/18 05:49 Normal Saline - IV 125 mls/hr ASDIR SHALONDA Administration Levofloxacin 500 mg 03/14/18 06:00 03/15/18 05:49 Levaquin - PO 500 mg DAILY@0600 SHALONDA Administration Pantoprazole Sodium 40 mg 03/14/18 22:00 03/15/18 09:54 Protonix Iv IVPUSH 40 mg BID SHALONDA Administration Polyethylene Glycol 17 gm 03/15/18 13:30 Miralax (For Daily Use) - PO DAILY SHALONDA Senna 1 tab 03/15/18 22:00 Senna - PO HS SHALONDA ASSESSMENT/PLAN 57 year old male with HTN, presented with multiple episodes of BRBPR and Hematuria s/p Trans-rectal Prostate Biopsy 03/10/17 days ago by Urology (Dr. Amada Jean-Baptiste). 1. Acute Blood Loss Anemia sec to Rectal Bleed and Hematuria s/p Trans-rectal Prostate Biopsy H/H 7.4/20.7 s/p 1 unit PRBCs Urology and GI consulted - no intervention recommended. Will transfuse second unit PRBCs. Empirically on Levaquin, Urine Cx pending. Will monitor for further blood loss and H/H. 2. HTN - Continue Lisinopril. 3. Pancytopenia - multifactorial. Anemia sec to bleed s/p prostate biopsy, leukopenia/thrombocytopenia reactive vs dilutional. Discontinue IV fluids. Will monitor. DVT Px - SCDs - Heparin held sec to GI Bleed and Thrombocytopenia.
[2018-03-15] MEDS: POLYETHYLENE GLYCOL 3350 119 GM BTL PO SCH (14:00)
[2018-03-15 20:03] LABS: HEMATOCRIT 24.7 % (35.4-49); HEMOGLOBIN 8.6 GM/dL (11.7-16.9); MCH 31.5 pg (25.7-33.7); MEAN CELL VOLUME 90.1 fl (80-96); MEAN PLT VOLUME 10.4 fl (7.5-11.1); PLATELET COUNT 100 K/MM3 (134-434); RBC 2.74 M/mm3 (4.00-5.60); RDW 14.5 % (11.9-15.9); WHITE BLOOD COUNT 3.9 K/mm3 (4.0-10.0)
[2018-03-15] MEDS: PANTOPRAZOLE 40 MG TABLET (FP) PO SCH (21:53)
[2018-03-15] MEDS ORDERED: SENNOSIDES 8.6MG TABLET (FP) PO SCH (22:00)
[2018-03-16 08:03] LABS: HEMOGLOBIN 8.3 GM/dL (11.7-16.9); MCH 31.5 pg (25.7-33.7); MCHC 34.8 g/dl (32.0-35.9); MEAN CELL VOLUME 90.6 fl (80-96); PLATELET COUNT 99 K/MM3 (134-434); RBC 2.65 M/mm3 (4.00-5.60); RDW 14.6 % (11.9-15.9); WHITE BLOOD COUNT 3.8 K/mm3 (4.0-10.0)
[2018-03-16 08:21] LABS: ALK PHOS 53 U/L (45-117); ANION GAP 6 MMOL/L (8-16); BILIRUBIN,TOTAL 0.8 mg/dL (0.2-1); BLOOD UREA NITROGEN 8 mg/dL (7-18); CALCIUM 7.9 mg/dL (8.5-10.1); CHLORIDE 105 mmol/L (98-107); CO2 30 mmol/L (21-32); CREATININE 0.8 mg/dL (0.55-1.3); GLUCOSE,RANDOM 94 mg/dL (74-106); PHOSPHOROUS 2.8 mg/dL (2.5-4.9); POTASSIUM 3.6 mmol/L (3.5-5.1); SGOT/AST 20 U/L (15-37); SGPT/ALT 18 U/L (13-61); SODIUM 140 mmol/L (136-145); TOT PROT 5.7 g/dl (6.4-8.2)
[2018-03-16] MEDS: POLYETHYLENE GLYCOL 3350 119 GM BTL PO SCH (09:59)
[2018-03-16] MEDS: PANTOPRAZOLE 40 MG TABLET (FP) PO SCH (09:59)
[2018-03-16 13:59] VITALS: BP 138/81; PULSE 91; TEMP 97.8
[2018-03-16 14:06] LABS: HEMATOCRIT 26.3 % (35.4-49); HEMOGLOBIN 9.1 GM/dL (11.7-16.9); MCH 31.4 pg (25.7-33.7); MCHC 34.8 g/dl (32.0-35.9); MEAN CELL VOLUME 90.2 fl (80-96); MEAN PLT VOLUME 9.8 fl (7.5-11.1); PLATELET COUNT 117 K/MM3 (134-434); RBC 2.91 M/mm3 (4.00-5.60)
--- NOTE | 2018-03-16 14:17 | PN ---
Teaching Attending Note Name of Resident: David Jimenez ATTENDING PHYSICIAN STATEMENT I saw and evaluated the patient. I reviewed the resident's note and discussed the case with the resident. I agree with the resident's findings and plan as documented. SUBJECTIVE: Patient has no complaints. No hematuria or rectal bleeding. OBJECTIVE: Vital Signs Period Temp Pulse Resp BP Sys/Cabrera Pulse Ox Last 24 Hr 97.8 F-99.3 F 82-102 16-20 137-155/79-90 98 HEART: S1S2, RRR LUNGS: Clear ABDOMEN: Soft, non-tender, non-distended, normal BS EXTREMITIES: No edema Laboratory Results - last 24 hr 03/13/18 03/15/18 03/16/18 22:00 19:00 07:00 WBC 3.9 L 3.8 L RBC 2.74 L 2.65 L Hgb 8.6 L 8.3 L Hct 24.7 L D 24.0 L MCV 90.1 90.6 MCH 31.5 31.5 MCHC 35.0 34.8 RDW 14.5 14.6 Plt Count 100 L 99 L MPV 10.4 10.0 Sodium Potassium Chloride Carbon Dioxide Anion Gap BUN Creatinine Creat Clearance w eGFR Random Glucose Calcium Phosphorus Magnesium Total Bilirubin AST ALT Alkaline Phosphatase Total Protein Albumin Blood Type O POSITIVE Antibody Screen Negative Crossmatch See Detail 03/16/18 03/16/18 07:00 13:48 WBC 4.0 RBC 2.91 L Hgb 9.1 L Hct 26.3 L MCV 90.2 MCH 31.4 MCHC 34.8 RDW 15.0 Plt Count 117 L MPV 9.8 Sodium 140 Potassium 3.6 Chloride 105 Carbon Dioxide 30 Anion Gap 6 L BUN 8 Creatinine 0.8 Creat Clearance w eGFR > 60 Random Glucose 94 Calcium 7.9 L Phosphorus 2.8 Magnesium 2.0 Total Bilirubin 0.8 AST 20 ALT 18 Alkaline Phosphatase 53 Total Protein 5.7 L Albumin 3.0 L Blood Type Antibody Screen Crossmatch Current Medications Generic Name Dose Route Start Last Admin Trade Name Freq PRN Reason Stop Dose Admin Levofloxacin 500 mg 03/14/18 06:00 03/16/18 05:52 Levaquin - PO 500 mg DAILY@0600 SHALONDA Administration Pantoprazole Sodium 40 mg 03/15/18 22:00 03/16/18 09:59 Protonix - PO 40 mg BID SHALONDA Administration Polyethylene Glycol 17 gm 03/15/18 13:30 03/16/18 09:59 Miralax (For Daily Use) - PO 17 gm DAILY SHALONDA Administration Senna 1 tab 03/15/18 22:00 03/15/18 21:53 Senna - PO 1 tab HS SHALONDA Administration ASSESSMENT AND PLAN: This is a 57 year old man with a history of HTN who presented to the ED with hematuria and rectal bleeding after transrectal prostate biopsy. 1. Acute blood loss anemia secondary to rectal bleeding and hematuria after transrectal prostate biopsy - Transfused 2 units PRBCs - No evidence of further bleeding - Hemoglobin stable - Continue empiric Levaquin 2. HTN - Resume Lisinopril 3. Pancytopenia - WBC and platelets improving - Anemia as above 4. Disposition - Ok for discharge home with outpatient GI/ follow up
--- NOTE | 2018-03-16 14:32 | DS ---
Physical Exam: SUBJECTIVE: Patient seen and examined at bedside this morning. He denies acute complaints today. Denies hematuria, or any acute bleeding. OBJECTIVE: Vital Signs Period Temp Pulse Resp BP Sys/Cabrera Pulse Ox Last 24 Hr 97.8 F-99.3 F 82-102 16-20 137-155/79-90 98 PHYSICAL EXAM GENERAL: The patient is awake, alert, and fully oriented, in no acute distress. HEAD: Normocephalic, atraumatic EYES: PERRL, extraocular movements intact, sclera anicteric, conjunctiva clear ENT: Oropharynx clear without exudates, moist mucous membranes. NECK: Supple, without lymphadenopathy LUNGS: Breath sounds equal, clear to auscultation bilaterally, no wheezes, no crackles. HEART: Regular rate and rhythm, S1, S2 without murmur, rub or gallop. ABDOMEN: Soft, nontender to light and deep palpation. Hypoactive bowel sounds X4 quadrants. No guarding, no rebound tenderness. No hepatosplenomegaly appreciated. EXTREMITIES: 2+ radial and dorsalis pedis pulses B/L. Warm, well-perfused. No lower extremity edema. NEUROLOGICAL: Cranial nerves II through XII grossly intact. Normal speech. PSYCH: Normal mood, normal affect upon my encounter today. SKIN: Warm, dry. LABS Laboratory Results - last 24 hr 03/13/18 03/15/18 03/16/18 22:00 19:00 07:00 WBC 3.9 L 3.8 L RBC 2.74 L 2.65 L Hgb 8.6 L 8.3 L Hct 24.7 L D 24.0 L MCV 90.1 90.6 MCH 31.5 31.5 MCHC 35.0 34.8 RDW 14.5 14.6 Plt Count 100 L 99 L MPV 10.4 10.0 Sodium Potassium Chloride Carbon Dioxide Anion Gap BUN Creatinine Creat Clearance w eGFR Random Glucose Calcium Phosphorus Magnesium Total Bilirubin AST ALT Alkaline Phosphatase Total Protein Albumin Blood Type O POSITIVE Antibody Screen Negative Crossmatch See Detail 03/16/18 03/16/18 07:00 13:48 WBC 4.0 RBC 2.91 L Hgb 9.1 L Hct 26.3 L MCV 90.2 MCH 31.4 MCHC 34.8 RDW 15.0 Plt Count 117 L MPV 9.8 Sodium 140 Potassium 3.6 Chloride 105 Carbon Dioxide 30 Anion Gap 6 L BUN 8 Creatinine 0.8 Creat Clearance w eGFR > 60 Random Glucose 94 Calcium 7.9 L Phosphorus 2.8 Magnesium 2.0 Total Bilirubin 0.8 AST 20 ALT 18 Alkaline Phosphatase 53 Total Protein 5.7 L Albumin 3.0 L Blood Type Antibody Screen Crossmatch HOSPITAL COURSE: Date of Admission:03/13/18 Date of Discharge: 03/16/18 Patient is a 57 year old male with history of hypertension, recent prostate biopsy presented with bright red blood per rectum and hematuria. Patient was evaluated by Urology who recommended supportive care, and bowel regimen. Patient was restarted on his post- biopsy Levaquin. Home Naproxen was held. Patient was evaluated by senior litigation paralegal who discussed no further rectal bleeding, and outpatient follow up. Patient had no episodes of further bleeding and patient was discharged home to follow up with Urology and Gastroenterology. He received two units PRBC during hospitalization. Minutes to complete discharge: 45 Discharge Summary Reason For Visit: HEMATURIA,POSTOPERATIVE HEMORRHAGE,VASOVAGAL Current Active Problems Abdominal pain (Acute) Hematuria (Acute) Post-operative hemorrhage (Acute) Condition: Stable - Instructions Diet, Activity, Other Instructions: You were admitted to hospital after episode of bleeding associated with bowel movement. You were evaluated by the Urologist, and Community Health Educator. Your blood counts were low, and you received two units of blood during hospitalization. You are being discharged home. We have made some changes to your medications: You will stop taking Naproxen. Continue taking your antibiotic Levaquin for two more doses. Continue taking your Lisinopril as directed. Be sure to measure your blood pressure daily, and record the readings to discuss with your primary care physician at your next appointment. Ensure that you remain adequately hydrated, and drink plenty of water daily. Follow up with your primary care physician within two- three days after discharge Follow up with Urologist (Dr. Urbina) within two- three days after discharge. Follow up with your senior litigation paralegal (Dr. Gonzalez) within one week of discharge. Return to the nearest emergency department if you experience any worsening symptoms, fevers, chills, shortness of breath, chest pain, palpitations, abdominal pain, nausea, vomiting. Referrals: Obdulio Mendez MD [Primary Care Provider] - Ramy Urbina MD [Staff Physician] - Juan Gonzalez MD [Staff Physician] - Disposition: HOME - Home Medications Comprehensive Discharge Medication List: Ambulatory Orders Levofloxacin [Levaquin] 500 mg PO DAILY 03/13/18 Lisinopril 5 mg PO DAILY 03/16/18 This patient is new to me today: No Emergency Visit: Yes ED Registration Date: 03/13/18 Care time: The patient presented to the Emergency Department on the above date and was hospitalized for further evaluation of their emergent condition. Critical Care patient: No - Discharge Referral Referred to [facility] Med P.C.: Yes Physician Referral: Obdulio Brewer MD ([facility])
== END 2018-03-16 15:09 | disposition home or self-care (01) | DRG 920 ==
LOC: JER 21:54 → JERBED 23:22 → J6S 03-14 03:23
PROVIDERS: ADMIT Internal Medicine; ATTEND Internal Medicine
PROC: 30233N1 Transfusion of Nonautologous Red Blood Cells into Peripheral Vein, Percutaneous Approach (ICD-10-PCS; principal; 2018-03-14)
DX: N99.820 Postprocedural hemorrhage of a genitourinary system organ or structure following a genitourinary system procedure (principal); D62 Acute posthemorrhagic anemia; D61.818 Other pancytopenia; Y84.8 Other medical procedures as the cause of abnormal reaction of the patient, or of later complication, without mention of misadventure at the time of the procedure; R31.9 Hematuria, unspecified; I10 Essential (primary) hypertension; E88.09 Other disorders of plasma-protein metabolism, not elsewhere classified; R00.0 Tachycardia, unspecified
CPT/HCPCS: 36415; 36430; 36511; 71045-TC-FY; 80053; 81003; 81015; 82272; 82550; 82962; 83735; 84100; 84484; 85025; 85027; 85610; 86850; 86900; 86901; 86922; 87086; 93005; 93010; 99282-25; J7030; P9038; P9058

== ENCOUNTER 2020-11-13 05:23 | Emergency (ER) | payer OTHER ==
[2020-11-13] MEDS ORDERED: ASPIRIN 81 MG CHEWABLE TABLETS PO ONE (05:44)
[2020-11-13] MEDS ORDERED: ASPIRIN 81 MG CHEWABLE TABLETS ONE (05:54)
[2020-11-13 05:56] VITALS: BMI 28.3
[2020-11-13] MEDS ORDERED: NITROGLYCERIN SUBLINGUAL 1/150 0.4 MG TAB SL ONE (06:07)
[2020-11-13 06:17] LABS: BASO % 0.3 % (0-2.0); EOS % 1.2 % (0-4.5); HEMATOCRIT 40.8 % (35.4-49); HEMOGLOBIN 14.6 GM/dL (11.7-16.9); LYMPH % 22.5 % (8-40); MCH 31.6 pg (25.7-33.7); MCHC 35.6 g/dl (32.0-35.9); MEAN CELL VOLUME 88.6 fl (80-96); MEAN PLT VOLUME 11.1 fl (7.5-11.1); MONO % 6.8 % (3.8-10.2); NEUT % 69.2 % (42.8-82.8); PLATELET COUNT 102 10^3/uL (134-434); RBC 4.61 M/mm3 (4.00-5.60); RDW 14.8 % (11.9-15.9); WHITE BLOOD COUNT 6.3 K/mm3 (4.0-10.0)
[2020-11-13 06:39] LABS: CHLORIDE 105 mmol/L (98-107); SODIUM 137 mmol/L (136-145)
[2020-11-13 06:42] LABS: CALCIUM 8.6 mg/dL (8.5-10.1)
[2020-11-13 06:43] LABS: ALBUMIN 3.6 g/dl (3.4-5.0); ANION GAP 7 MMOL/L (8-16); BLOOD UREA NITROGEN 17.9 mg/dL (7-18); CO2 25 mmol/L (21-32); GLUCOSE,RANDOM 136 mg/dL (74-106)
[2020-11-13 06:46] LABS: CREATININE 0.8 mg/dL (0.55-1.3); SGOT/AST 29 U/L (15-37); SGPT/ALT 31 U/L (13-61)
[2020-11-13 06:48] LABS: BILIRUBIN,TOTAL 0.4 mg/dL (0.2-1); TOT PROT 7.7 g/dl (6.4-8.2)
[2020-11-13 06:49] LABS: ALK PHOS 121 U/L (45-117)
[2020-11-13 07:03] LABS: INR 0.95 (0.83-1.09); PROTHROMBIN TIME (PATIENT) 11.7 SEC (9.7-13.0)
[2020-11-13 07:06] LABS: ACTIVATED PTT 29.4 SECONDS (25.2-36.5)
[2020-11-13 08:14] VITALS: BP 126/91; PULSE 96; TEMP 97.6
== END 2020-11-13 08:20 | disposition short-term general hospital (02) ==
LOC: JER 05:23
DX: I24.9 Acute ischemic heart disease, unspecified (principal)
CPT/HCPCS: 36415; 71045-TC-FY; 80053; 82550; 82553; 84484; 85025; 85610; 85730; 93005; 93010; 99291; C9803; U0003; U0005